=== PATIENT | female | born 1970 | race African-American/Black ===

== ENCOUNTER 2016-12-07 08:45 | Inpatient (IN) | payer OTHER ==
--- NOTE | ~2016-12-07 | CO ---
Unit #: [id number] #: [id number] Patient: GINA HOWARD [id number] [address] [address] [id number] I MR#: [id number] NAME: GINA HOWARD ROOM: 562 Age: 46 Sex: F Admission Date: 12/07/2016 : 1970 Attending Physician: Stephen Britt M.D. Primary Care Physician: [facility] Consultation Date: 12/07/2016 CONSULTATION REPORT REASON FOR CONSULTATION Diabetic ketoacidosis. HISTORY OF PRESENT ILLNESS The patient is a 46-year-old female with some learning disability from , history of gestational diabetes who presented to the emergency room with three to four days history of nausea, vomiting, abdominal pain, and no diarrhea. Reports gradually symptoms have been getting worse. She has lost a lot of weight. In the emergency room, her glucose was 766 with CO2 of 10 and pH of 7. She was treated with normal saline in the ER, started on insulin drip. She was transferred to the telemetry floor where the patient is being seen at this time. PAST MEDICAL HISTORY See HPI. PAST SURGICAL HISTORY None. SOCIAL HISTORY Lives with boyfriend. Smokes daily, few cigarettes. CODE STATUS Her code status is full. FAMILY HISTORY Diabetes mellitus. ALLERGIES None. HOME MEDICATIONS Norvasc 10 mg daily. REVIEW OF SYSTEMS A 12-point review of systems was completed. Please see HPI. PHYSICAL EXAMINATION GENERAL: She is (1) and thin, looks cachectic and dehydrated. VITAL SIGNS: Vitals are 98, pulse 115, respirations 14, blood pressure 198/75. HEENT: EOMI. Pupils equal, reactive to light. NECK: Supple. No thyromegaly noted. CHEST: Good air entry. Unit #: [id number] #: [id number] Patient: GINA HOWARD CARDIOVASCULAR: Regular rhythm. ABDOMEN: Soft, nontender. Bowel sounds positive. EXTREMITIES: No edema noted. NEUROLOGIC: Nonfocal. DIAGNOSTIC STUDIES LABORATORY: Glucose 754, creatinine 1.6, sodium 131, potassium 4.8, chloride 88, CO2 is 9. Positive ketones. Blood gas: A ph is 7. ASSESSMENT 1. Diabetic ketoacidosis. 2. Pseudohyponatremia. 3. Acute kidney injury. 4. Lactic acidosis. 5. Leukocytosis. 6. Question of sepsis. PLAN 1. Continue insulin drip. 2. Continue IV antibiotics. 3. Monitor electrolytes. 4. Continue IV fluids, D5 half normal at 150 mL/hr. 5. Accu-Cheks every one to two hours. 6. Check a magnesium, phosphorous, potassium as per protocol. Replace as needed. Thanks again for consultation. Dictated by... Young Buchanan/yenny TD: 12/10/2016 09:04 JOB #: [id number] CONSULTATION REPORT Page 1 of 1 X Oskar Miller MD X CONSULTATION REPORT
--- NOTE | ~2016-12-07 | EKG ---
PATIENT: GINA HOWARD UNIT #: [id number] Ventricular Rate: 98 BPM Atrial Rate: 98 BPM P-R Interval: 124 ms QRS Duration: 84 ms Q-T Interval: 360 ms QTC Calculation(Bezet): 459 ms P [place]: 51 degrees Calculated R [place]: 41 degrees Calculated T [place]: 68 degrees Diagnosis Line: Normal sinus rhythm Diagnosis Line: Voltage criteria for left ventricular hypertrophy Diagnosis Line: T wave abnormality, consider anterior ischemia Diagnosis Line: Abnormal ECG Diagnosis Line: Diagnosis Line: Confirmed by JANIE BLEDSOE MD ([id number]) on Diagnosis Line: 12/10/2016 5:13:49 PM INTERPRETING MD: SAMAN
--- NOTE | ~2016-12-07 | DS ---
Unit #: [id number] #: [id number] Patient: GINA HOWARD [id number] [address] [address] [id number] I MR#: [id number] NAME: GINA HOWARD ROOM: 56 Age: 46 Sex: F Admission Date: 12/07/2016 : 1970 Discharge Date: 12/14/2016 Attending Physician: Efra Amaya M.D. Primary Care Physician: [facility]. DISCHARGE SUMMARY PERTINENT HISTORY AND HOSPITAL COURSE The patient is a 46-year-old woman with a history significant for learning disability who presents to the emergency room with a 3- to 4-day history of nausea and vomiting and abdominal pain. In the emergency room her blood sugar was noted to be 766, and her bicarb was 10 with an anion gap of 31 and a pH of 7.046. The patient was aggressively hydrated and started on an insulin drip. During her hospital course the patient was unable to comprehend sliding scale coverage, nor was she able to adjust her insulin dosage. Endocrinology was consulted, and it was decided that the patient would be better off with standard dosage of Novolin 70/30 insulin 20 units with breakfast and 20 units with supper. The patient was discharged with home health services. At discharge the patient's vitals were stable. The patient was no longer in DKA. Blood sugar was better controlled. DISCHARGE DIAGNOSES 1. Diabetic ketoacidosis. 2. Insulin-dependent diabetes mellitus 3. Learning disability. CONSULTATIONS Endocrinology. DISCHARGE INSTRUCTIONS 1. Home health services to follow up with the patient, diabetic teaching and insulin administration. 2. Follow up with primary care physician. Dictated by... Young Lorenzana/edward TD: 12/19/2016 10:59 JOB #: [id number] Unit #: [id number] #: [id number] Patient: GINA HOWARD DISCHARGE SUMMARY Page 1 of 1 X X DISCHARGE SUMMARY
--- NOTE | ~2016-12-07 | CR72 ---
[facility] A Service of [facility] & [facility] RADIOLOGY TEXT RESULTS PATIENT: GINA HOWARD LOCATION: [facility] 562-01 : [birth year] UNIT #: [id number] AGE: [address]: Cecile Nascimento MD SEX: F ORDER DR: [id number] [facility] [address] [place], [place] [address] [id number] E MR#: [id number] Acc #: [id number] NAME: GINA HOWARD : 1970 SEX: F STUDY DATE/TIME: 12/07/2016 13:04 UNIT: [facility] ROOM: STUDY DESCRIPTION: CR Chest Single View Portable Attending Physician: Bill Akhtar M.D. Ordering Physician: Cecile Nascimento M.D. Primary Care Physician: [facility], [facility]. MEDICAL IMAGING REPORT This report is preliminary unless electronic signature is present EXAM Chest, portable, 12/07/2016, 1304 hours. CLINICAL HISTORY 46-year-old woman with shortness of air, nausea and vomiting for 4 days. COMPARISON None FINDINGS Portable upright chest demonstrates the patient to be rotated to the right. Allowing for this, the cardiac, mediastinal, and hilar contours are within normal limits. The lungs are well expanded and clear. There is no pleural effusion or pneumothorax. IMPRESSION Film is limited by rightward rotation of the patient. There are no acute cardiopulmonary findings. The lungs are clear. Dictated by... Airam Thao M.D. THIS IS AN ELECTRONICALLY VERIFIED REPORT Airam Thao M.D. at 12/07/2016 5:18 PM WADE/trae TD: 12/07/2016 16:13 JOB #: [id number] MEDICAL IMAGING REPORT Page 1 of 1 COPY
--- NOTE | ~2016-12-07 | EKG ---
PATIENT: GINA HOWARD UNIT #: [id number] Ventricular Rate: 136 BPM Atrial Rate: 136 BPM P-R Interval: 122 ms QRS Duration: 82 ms Q-T Interval: 374 ms QTC Calculation(Bezet): 562 ms P [place]: 71 degrees Calculated R [place]: 66 degrees Calculated T [place]: 78 degrees Diagnosis Line: Sinus tachycardia Diagnosis Line: Biatrial enlargement Diagnosis Line: Left ventricular hypertrophy Diagnosis Line: Marked ST abnormality, possible inferior Diagnosis Line: subendocardial injury Diagnosis Line: Abnormal ECG Diagnosis Line: No previous ECGs available Diagnosis Line: Confirmed by NATTY WHITTAKER MD ([id number]) on Diagnosis Line: 12/07/2016 12:08:36 PM INTERPRETING MD: REMEDIOS CORNEJO
--- NOTE | ~2016-12-07 | HP ---
Unit #: [id number] #: [id number] Patient: GINA HOWARD [id number] [address] [place], [place] [address] [id number] E MR#: [id number] NAME: GINA HOWARD ROOM: Age: 46 Sex: F Admission Date: 12/07/2016 : 1970 Attending Physician: Bill Akhtar M.D. [facility] Phys[facility]: [facility]. HISTORY AND PHYSICAL CHIEF COMPLAINT Nausea, vomiting, diarrhea. HISTORY OF PRESENT ILLNESS The patient is a 46-year-old female with past medical history of hypertension and learning disability who presented to the emergency department for evaluation of the above. The patient states that she has had a 3- to 4-day history of nausea, vomiting. She states that she has had abdominal pain in the upper abdomen she describes as "achy." It is intermittent in nature. There are no exacerbating or alleviating factors. She denies any similar pain. She reports 3 bouts of nonbloody emesis. She actually denies diarrhea, although that is listed on the ER triage sheet. She denies fever. She has an occasional cough. She denies any urinary symptoms. In the emergency department initial pulse and blood pressure were 138 and 137/121 respectively. Glucose on comprehensive metabolic panel was 766, CO2 of 10, anion gap of 31, pH of 7.046. She was given 1,500 mL of normal saline, as well as 8 units of regular insulin. She was also started on an insulin drip. She is being admitted to [facility] for evaluation and further treatment. PAST MEDICAL HISTORY 1. The patient denies hospitalizations. 2. Hypertension. 3. Learning disability. PAST SURGICAL HISTORY None. SOCIAL HISTORY The patient lives alone. She smokes a few cigarettes daily. She denies alcohol or illicit drug use. CODE STATUS Her code status is a full code. FAMILY HISTORY The patient states that her brother has diabetes. ALLERGIES No known allergies. Unit #: [id number] #: [id number] Patient: GINA HOWARD HOME MEDICATIONS Norvasc 10 mg daily. REVIEW OF SYSTEMS A complete review of systems is negative except as indicated in the HPI. PHYSICAL EXAMINATION VITAL SIGNS: Temperature is 98, pulse 138, respirations 18, blood pressure 137/121, oxygen saturation 96% on room air. GENERAL: The patient is an female who is awake and alert, in no acute distress. HEENT: The head is atraumatic. Mucous membranes are dry. NECK: Supple. Trachea is midline. CARDIOVASCULAR: Tachycardic in the one-teens. RESPIRATORY: Lungs are clear to auscultation bilaterally with no increased work of breathing. ABDOMEN: Soft. She is mildly tender to palpation in the epigastric region. Bowel sounds are present in all 4 quadrants. EXTREMITIES: Extremities are nontender with no pedal edema. NEUROLOGIC: The patient is awake and alert. She is oriented to person and place. She is not sure of the year. She follows commands. PSYCHIATRIC: Mood and affect are normal. The patient is cooperative. SKIN: Skin of examined areas is warm and dry. DIAGNOSTIC TESTS CARDIOVASCULAR: EKG showed sinus tachycardia with rate of 136 beats per minute. IMAGING: CT of the abdomen and pelvis shows indeterminate lesions in the liver. Ultrasound of the liver shows no stones. There is fatty infiltration. The previously described indeterminate lesions on CT are not appreciated. LABORATORY: Arterial blood gases shows pH of 7.046, pCO2 of 19.4, pO2 of 128. INR is 1. Lactic acid 5.6. Complete blood count notable for white blood cell count of 19, hemoglobin and hematocrit 15.1 and 51.6 respectively. Comprehensive metabolic panel notable for sodium of 130 that corrects when glucose of 766 is accounted for. CO2 is 10, anion gap 31, BUN and creatinine 26 and 1.6 respectively, alkaline phosphatase is 220. CK is 18. Lipase is 23. Beta hydroxybutyrate 11.69. Urinalysis notable for 2+ protein, greater than 1,000 glucose, 3+ ketones, 1+ blood, negative for bacteria. Urine tox screen is positive for marijuana. Troponin is less than 0.05. ASSESSMENT 1. The patient is a 46-year-old female with DKA. The patient denies ever being told she has diabetes. She received a total of 1,500 mL of normal saline in the emergency department. She was also given insulin 8 units and started on an insulin drip. 2. Anion gap metabolic acidosis with an anion gap of 31. 3. Acute kidney injury. The patient's creatinine is 1.6 with no baseline for comparison. 4. Leukocytosis without obvious source of infection. The patient received Zosyn in the emergency department. 5. Hypertension. The patient takes Norvasc intermittently. 6. "Learning disability." 7. Lesions of the liver noted on CT, not confirmed on ultrasound. The Unit #: [id number] #: [id number] Patient: GINA HOWARD patient may need a dedicated liver CT or MRI. 8. Tobacco abuse. PLAN 1. Admit to ICU. 2. NPO. 3. DKA protocol with insulin drip. 4. Serial cardiac enzymes. 5. Neuro checks. 6. Check magnesium and phosphorous levels. 7. Blood cultures x2. 8. Sepsis protocol. 9. Zosyn pending further workup. 10. SCDs for DVT prophylaxis. 11. Protonix for GI prophylaxis. 12. Repeat labs in the morning. 13. Additional workup and consultants based on above. NOTE: Thirty minutes critical care time spent in the care of this patient (12 to 12:30 p.m.). Dictated by Young Schroeder/edward TD: 12/07/2016 13:50 JOB #: [id number] HISTORY AND PHYSICAL Page 1 of 1 X Cecile Nascimento MD HISTORY AND PHYSICAL
--- NOTE | ~2016-12-07 | CT4 ---
[facility] A Service of [facility] & [facility] RADIOLOGY TEXT RESULTS PATIENT: GINA HOWARD LOCATION: [facility] : 74 UNIT #: [id number] AGE: [address]: Bill Akhtar MD SEX: F ORDER DR: [id number] [facility] [address] [place], [place] [address] [id number] E MR#: [id number] Acc #: [id number] NAME: GINA HOWARD : 1970 SEX: F STUDY DATE/TIME: 12/07/2016 10:13 UNIT: [facility] ROOM: STUDY DESCRIPTION: CT Abd and Pelv Wo Cont Attending Physician: Bill Akhtar M.D. Ordering Physician: Bill Akhtar M.D. Primary Care Physician: [facility] MEDICAL IMAGING REPORT This report is preliminary unless electronic signature is present EXAM CT abdomen and pelvis without contrast 12/07/2016 1013 hours HISTORY 46-year-old woman with diffuse abdominal pain for 4 days with associated nausea and vomiting. COMPARISON None. TECHNIQUE Helical noncontrasted images were obtained from the lung bases through the pubic symphysis. No oral or intravenous contrast was administered. Total exam DLP 372 mGy-cm. This CT examination was performed with one or more of the following radiation dose reduction techniques: automatic exposure control, adjustment of mA and/or kV according to patient size, and iterative reconstruction. FINDINGS Images through the lung bases are clear. There are no effusions. The distal esophagus is normal. Images through the abdomen without contrast demonstrate a normal-sized liver and spleen. There is a geographic large area of low attenuation in the right lobe of the liver measuring up to 5.2 x 7.3 x 8.5 cm. There is a focal septated low attenuation lesion medially in the right lobe of the liver adjacent to the gallbladder, lower in attenuation than the geographic area. This appears to have septations. This measures 2.2 x 2.1 x 2.2 cm. Both of these areas are indeterminate for presence of mass. The gallbladder is contracted and appears to contain sludge. No definite gallbladder wall thickening. There is no bile duct dilatation. The pancreas and pancreatic duct are normal. The adrenal glands are normal. The kidneys demonstrate no mass or obstruction. There is a punctate STS. [facility] A Service of [facility] RADIOLOGY TEXT RESULTS PATIENT: GINA HOWARD LOCATION: [facility] : 74 UNIT #: [id number] AGE: [address]: Bill Akhtar MD SEX: F ORDER DR: nonobstructing stone in the lower pole left kidney. There is no ureterectasis or ureteral calculus. There are multiple pelvic phleboliths. The stomach is contracted and unopacified but appears normal. The small bowel demonstrates no distension or wall thickening. The terminal ileum and appendix are normal. The colon is nondistended. There is no colonic wall thickening. CT pelvis demonstrates normal appearance to the uterus and ovaries. There is no pelvic free fluid. Bone window images demonstrate mild wedging at T12 and L1 with osteophytes present suggesting that this is not an acute finding. There is lower lumbar facet arthropathy bilaterally. IMPRESSION 1. The liver is normal in size but there are 2 abnormal areas. One is a large geographic area of lower attenuation poorly defined measuring up to 7.3 x 5.2 x 8.5 cm in the posterior aspect right lobe of the liver. In the medial aspect right lobe of the liver adjacent to the gallbladder, there is a 2.2 x 2.1 x 2.2 cm cystic appearing area with some septations or nodularity in the wall. Both of these areas are indeterminate. Correlation with liver function tests is recommended. Consider further characterization with follow up multiphase liver CT or MRI. 2. There is a punctate nonobstructing stone in the lower pole left kidney. There are no ureteral calculi. 3. No distension of the stomach, small bowel or colon. There is no definite wall thickening seen. 4. Facet arthropathy in the lower lumbar spine. 5. There is wedging of T12 and L1 with osteophytes present suggesting this is likely a chronic finding. Dictated by... Airam Thao M.D. THIS IS AN ELECTRONICALLY VERIFIED REPORT Airam Thao M.D. at 12/07/2016 2:33 PM WADE/carlos TD: 12/07/2016 12:56 JOB #: [id number] MEDICAL IMAGING REPORT Page 1 of 1 COPY
--- NOTE | ~2016-12-07 | US67 ---
[facility] A Service of [facility] & [facility] RADIOLOGY TEXT RESULTS PATIENT: GINA HOWARD LOCATION: [facility] 562-01 : 74 UNIT #: [id number] AGE: [address]: Cecile Nascimento MD SEX: F ORDER DR: [id number] [facility] [address] [place], [place] [address] [id number] E MR#: [id number] Acc #: [id number] NAME: GINA HOWARD : 1970 SEX: F STUDY DATE/TIME: 12/07/2016 11:29 UNIT: [facility] ROOM: STUDY DESCRIPTION: Gallbladder Attending Physician: Bill Akhtar M.D. Ordering Physician: Bill Akhtar M.D. Primary Care Physician: [facility], [facility]. MEDICAL IMAGING REPORT This report is preliminary unless electronic signature is present EXAM Ultrasound gallbladder 12/07/2016 1129 hours. HISTORY Three-day history of abdominal pain, hypertension, abnormal CT abdomen today without contrast. Evaluate for liver lesion. COMPARISON CT abdomen 12/07/2016. FINDINGS Multiple transverse and longitudinal sonographic images were obtained through the right upper quadrant. The liver is within normal limits for size. It is of diffusely heterogeneous echogenicity. The editorial clerk does not identify any discrete, measurable lesion to correspond to the area seen on CT. It is possible the findings are simply related to underlying fatty metamorphosis. The findings are however nonspecific. No gallstones or sludge is seen. The gallbladder wall measures 3 mm which is borderline for abnormal thickening. The right kidney appears normal with no stones or distension. The pancreas is not well seen. IMPRESSION 1. No gallstones or sludge seen. The gallbladder wall measures 3 mm which is at the upper limits of normal. There is no pericholecystic fluid or bile duct dilatation. Common bile duct measures 3 mm. 2. The liver is overall normal in size with a diffusely heterogeneous echotexture. The editorial clerk does not demonstrate a discreet measurable lesion in the liver to correspond to the areas of abnormality. The findings may simply be related to diffuse fatty metamorphosis. Correlate with lab values and clinical condition. Consider follow up multiphase liver CT or MRI. If the liver function tests are normal, would consider these followup exams on an outpatient elective basis. [facility] A Service of [facility] & [facility] RADIOLOGY TEXT RESULTS PATIENT: GINA HOWARD LOCATION: [facility] 562- : 74 UNIT #: [id number] AGE: [address]: Cecile Nascimento MD SEX: F ORDER DR: Dictated by... Airam Thao M.D. THIS IS AN ELECTRONICALLY VERIFIED REPORT Airam Thao M.D. at 12/07/2016 5:18 PM WADE/jessie TD: 12/07/2016 14:58 JOB #: [id number] MEDICAL IMAGING REPORT Page 1 of 1 COPY
[2016-12-07 09:58] LABS: BASOPHIL# 0.1 X10e3 (0-0.3); BASOPHIL% 0.7 % (0-2.5); HEMATOCRIT 51.6 % (35.0-45.0); HEMOGLOBIN 15.1 gm/dL (12.0-16.0); LYMPHOCYTE# 1.6 X10e3 (1.0-3.5); LYMPHOCYTE% 8.2 % (17.0-45.0); MEAN CELL VOLUME 83.6 FL (83-96); MEAN CORPUSCULAR HEMOGLOBIN 24.5 PG (28-34); MEAN CORPUSCULAR HGB CONC 29.3 g/dL (30-36); MEAN PLATELET VOLUME 12.5 FL (6.5-11.5); MONOCYTE# 0.7 X10e3 (0-1.0); MONOCYTE% 3.8 % (3.0-12.0); NEUTROPHIL# 16.6 X10e3 (1.5-7.1); NEUTROPHIL% 87.3 % (40-75); RED BLOOD COUNT 6.17 X10e (3.90-5.30); RED CELL DISTRIBUTION WIDTH 17.3 % (11.0-15.5)
[2016-12-07 10:02] LABS: ARTERIAL BLD GAS O2 SATURATION 95.7 % (90.0-100.0); ARTERIAL BLOOD GAS CARBOXY HB 0.7 %sat (0.0-9.0); ARTERIAL BLOOD GAS HCO3 5.3 mmol/L; ARTERIAL BLOOD GAS MET HB 1.4 %sat (0.0-2.0)
[2016-12-07 10:07] LABS: PARTIAL THROMBOPLASTIN TIME 29.4 SECONDS (23.5-31.3); PROTHROMBIN TIME (PATIENT) 10.6 SECONDS (10.0-11.7)
[2016-12-07 10:13] LABS: ARTERIAL BLOOD GAS ART SITE LEFT BRACHIAL; ARTERIAL BLOOD GAS PCO2 19.4 mmHg (35.0-45.0); ARTERIAL BLOOD GAS pH 7.046 (7.350-7.450); ARTERIAL DRAW? YES
[2016-12-07 10:22] LABS: PLATELET COUNT 220 X10e3 (140-420)
[2016-12-07 10:30] LABS: DIFF IND YES
[2016-12-07 10:35] LABS: ANISOCYTOSIS SL; PLATELET ESTIMATE NORMAL (NORMAL)
[2016-12-07] MEDS ORDERED: PATIENT'S PHARMACY (10:53)
[2016-12-07] MEDS ORDERED: NORVASC10 MG PO (10:53)
[2016-12-07 10:56] LABS: ALBUMIN SERUM 4.7 g/dL (3.5-5.0); ALKALINE PHOSPHATASE 220 U/L (32-92); ALT (SGPT) 27 U/L (10-40); AST (SGOT) 17 U/L (10-42); BILIRUBIN,TOTAL 1.8 mg/dL (0.2-2.0); BLOOD UREA NITROGEN 26 mg/dL (9-23); BUN/CREATININE RATIO 16.25; CALCIUM SERUM 9.3 mg/dL (8.4-10.2); CARBON DIOXIDE 10 mmol/L (22-31); CHLORIDE 89 mmol/L (100-111); CPK (CREATINE PHOSPHOKINASE) 18 IU/L (26-140); CREATININE SERUM 1.6 mg/dL (0.6-1.4); GLOM FILT RATE Estimated 38.8 mL/min (>60); LIPASE 23 U/L (22-51); POTASSIUM 4.3 mmol/L (3.5-5.1); PROTEIN TOTAL SERUM 9.7 g/dL (6.0-8.3); SODIUM 130 mmol/L (135-145)
[2016-12-07 10:57] LABS: BETA HYDROXYBUTYRATE 11.69 MMOL/L (0.02-0.27); BILIRUBIN, DIRECT <0.1 mg/dL (0.0-0.2); BILIRUBIN,INDIRECT 1.7 mg/dL (0.0-0.9); GLUCOSE FASTING 766 mg/dL (70-110)
[2016-12-07 10:58] LABS: URINE SOURCE CLEAN CATCH
[2016-12-07 11:02] LABS: URINE APPEARANCE CLEAR; URINE BILIRUBIN NEG (NEG); URINE BLOOD 1+ (NEG); URINE COLOR YELLOW; URINE GLUCOSE >1000 MG/DL (NEG); URINE KETONE 3+ (NEG); URINE LEUKOCYTE ESTERASE NEG (NEG); URINE NITRATE NEG (NEG); URINE PROTEIN 2+ (NEG); URINE SPECIFIC GRAVITY 1.028 (1.003-1.035); URINE UROBILINOGEN 0.2 MG/DL (NEG)
[2016-12-07 11:05] LABS: CULTURE INDICATED? NO; URINE BACTERIA AUWI NEG (NEGATIVE); URINE SQUAMOUS EPITHELIAL CELL NONE SEEN /[HPF]; UWBCS1 AUWI 0-2 (0-5)
[2016-12-07 11:13] LABS: AMPHETAMINE NEG (NEG); BARBITURATES NEG (NEG); BENZODIAZEPINES NEG (NEG); COCAINE NEG (NEG); MARIJUANA POS (NEG); OPIATES NEG (NEG); TRICYCLIC ANTIDEPRESSANTS NEG (NEG); U METHADONE NEG (NEG)
[2016-12-07 11:38] LABS: POC - CKMB <1.0 ng/mL (0.0-7.9); POC - TROPONIN <0.05 ng/mL (<=0.05)
[2016-12-07 11:38] LABS: CK TOTAL 21 IU/L (26-140)
[2016-12-07 13:47] LABS: BUN/CREATININE RATIO 16.25; CALCIUM SERUM 9.7 mg/dL (8.4-10.2); CREATININE SERUM 1.6 mg/dL (0.6-1.4); POTASSIUM 4.8 mmol/L (3.5-5.1)
[2016-12-07 18:44] LABS: CK TOTAL 28 IU/L (26-140)
[2016-12-07 18:58] LABS: CALCIUM SERUM 7.9 mg/dL (8.4-10.2); CREATININE SERUM 1.2 mg/dL (0.6-1.4); GLOM FILT RATE Estimated 63.7 mL/min (>60); MAGNESIUM 1.9 mg/dL (1.6-3.0); PHOSPHOROUS 1.5 mg/dL (2.5-4.6); POTASSIUM 4.3 mmol/L (3.5-5.1)
[2016-12-08 01:22] LABS: BUN/CREATININE RATIO 17.14; CALCIUM SERUM 7.4 mg/dL (8.4-10.2); CREATININE SERUM 0.7 mg/dL (0.6-1.4); GLOM FILT RATE Estimated 122.1 mL/min (>60); POTASSIUM 3.7 mmol/L (3.5-5.1)
[2016-12-08 03:59] LABS: BUN/CREATININE RATIO 14.28; CALCIUM SERUM 7.5 mg/dL (8.4-10.2); CREATININE SERUM 0.7 mg/dL (0.6-1.4); GLOM FILT RATE Estimated 122.1 mL/min (>60); MAGNESIUM 2.8 mg/dL (1.6-3.0); POTASSIUM 3.7 mmol/L (3.5-5.1)
[2016-12-08 04:50] LABS: FREE T3 2.7 pg/mL (2.5-3.9)
[2016-12-08 04:52] LABS: FREE THYROXIN (T4) 0.7 ng/dL (0.58-1.64)
[2016-12-08 07:16] LABS: HEMATOCRIT 36.6 % (35.0-45.0); MEAN CORPUSCULAR HEMOGLOBIN 24.6 PG (28-34); MEAN PLATELET VOLUME 11.5 FL (6.5-11.5); RED BLOOD COUNT 4.61 X10e (3.90-5.30); RED CELL DISTRIBUTION WIDTH 15.6 % (11.0-15.5); WHITE BLOOD COUNT 13.7 X10e3 (4.0-10.5)
[2016-12-08 07:25] LABS: HEMOGLOBIN 11.3 gm/dL (12.0-16.0); MEAN CELL VOLUME 79.4 FL (83-96)
[2016-12-08 12:59] LABS: BUN/CREATININE RATIO 8.57; CALCIUM SERUM 7.9 mg/dL (8.4-10.2); CREATININE SERUM 0.7 mg/dL (0.6-1.4); GLOM FILT RATE Estimated 122.1 mL/min (>60); POTASSIUM 3.3 mmol/L (3.5-5.1)
[2016-12-08 13:43] LABS: CK TOTAL 44 IU/L (26-140)
[2016-12-09 05:56] LABS: POTASSIUM 4.3 mmol/L (3.5-5.1)
[2016-12-10 03:22] LABS: URINE APPEARANCE CLEAR; URINE BILIRUBIN NEG (NEG); URINE BLOOD 2+ (NEG); URINE COLOR YELLOW; URINE GLUCOSE >1000 MG/DL (NEG); URINE KETONE TRACE (NEG); URINE LEUKOCYTE ESTERASE NEG (NEG); URINE NITRATE NEG (NEG); URINE PH 5.5 (5-8); URINE PROTEIN TRACE (NEG); URINE SPECIFIC GRAVITY 1.027 (1.003-1.035); URINE UROBILINOGEN 0.2 MG/DL (NEG)
[2016-12-10 03:24] LABS: URINE BACTERIA AUWI NEG (NEGATIVE); URINE SQUAMOUS EPITHELIAL CELL NONE SEEN /[HPF]
[2016-12-10 07:09] LABS: HEMATOCRIT 38.9 % (35.0-45.0); HEMOGLOBIN 12.3 gm/dL (12.0-16.0); MEAN CORPUSCULAR HEMOGLOBIN 24.2 PG (28-34); MEAN CORPUSCULAR HGB CONC 31.7 g/dL (30-36); MEAN PLATELET VOLUME 11.2 FL (6.5-11.5); RED BLOOD COUNT 5.09 X10e (3.90-5.30); RED CELL DISTRIBUTION WIDTH 15.6 % (11.0-15.5); WHITE BLOOD COUNT 12.9 X10e3 (4.0-10.5)
[2016-12-10 07:32] LABS: MEAN CELL VOLUME 76.4 FL (83-96)
[2016-12-10 07:52] LABS: BUN/CREATININE RATIO 21.66; CREATININE SERUM 0.6 mg/dL (0.6-1.4); GLOM FILT RATE Estimated 128.5 mL/min (>60)
[2016-12-12 04:21] LABS: CALCIUM SERUM 9.3 mg/dL (8.4-10.2); CREATININE SERUM 0.7 mg/dL (0.6-1.4); GLOM FILT RATE Estimated 122.1 mL/min (>60); POTASSIUM 4.3 mmol/L (3.5-5.1)
[2016-12-13 06:51] LABS: CALCIUM SERUM 9.7 mg/dL (8.4-10.2); GLOM FILT RATE Estimated 79.4 mL/min (>60); POTASSIUM 4.7 mmol/L (3.5-5.1)
[2016-12-14 07:19] LABS: BUN/CREATININE RATIO 27.5; CALCIUM SERUM 9.7 mg/dL (8.4-10.2); CREATININE SERUM 0.8 mg/dL (0.6-1.4); POTASSIUM 4.2 mmol/L (3.5-5.1)
[2016-12-14] MEDS ORDERED: TRUSOPT10 ML OU (17:23)
[2016-12-14] MEDS ORDERED: XALATAN OU (17:25)
[2016-12-14] MEDS ORDERED: TIMOPTIC 0.5% OP5 M2 OU (17:25)
[2016-12-14] MEDS ORDERED: NOVOLOG7030 SUBQ (17:27)
== END 2016-12-14 18:37 | disposition home health service (06) | DRG 638 ==
LOC: CED 08:45 → C5B 12:30 → CEDOF 12:30 → CED 12:36 → C5B 16:54 → CEDOF 16:54 → C5B 12-08 06:40
PROVIDERS: Emergency Medicine; Family Medicine; Internal Medicine
DX: E10.10 Type 1 diabetes mellitus with ketoacidosis without coma (principal); E87.1 Hypo-osmolality and hyponatremia; N17.9 Acute kidney failure, unspecified; D72.829 Elevated white blood cell count, unspecified; I10 Essential (primary) hypertension; F17.210 Nicotine dependence, cigarettes, uncomplicated; E86.0 Dehydration; Z79.4 Long term (current) use of insulin; F81.9 Developmental disorder of scholastic skills, unspecified
CPT/HCPCS: 36415; 36600; 51702; 71010; 74176; 76705; 80048; 80076; 80307; 81003; 82010; 82150; 82550; 82553; 82803; 82947; 83036; 83605; 83690; 83735; 84100; 84132; 84439; 84481; 84484; 84703; 85025; 85027; 85610; 85730; 86850; 86900; 86901; 87040; 93005; 96361; 96365; 96375; 99291; C9113; J1815; J1885; J2405; J2543; J3475